=== PATIENT | female | born 1990 | race Caucasian/White ===

== ENCOUNTER 2020-06-15 09:50 | Emergency (ER) | payer SELFPAY ==
--- NOTE | 2020-06-15 10:56 | EDPHYS ---
Physician Documentation [facility] Name: Laya Melendrez Age: 29 yrs Sex: Female : 1990 Arrival Date: 06/15/2020 Time: 09:54 Bed 23 Private MD: ED Physician Alexx Leigh HPI: 06/15 10:42 This 29 yrs old Female presents to ER via Ambulatory with complaints of Runny jr8 Nose, Headache, Cough. 10:42 Pt presents for runny nose, cough, and a headache x 3 days. Pt's children are having jr8 similar symptoms. Pt states that she feels drainage and congestion in her chest. No medications have been tried at home. No N/V/D, fever, SOB, or any other symptoms at this time.. 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 - Social history:: Smoking status: Patient reports the use of cigarette tobacco products, smokes one-half pack cigarettes per day. ROS: 10:53 Eyes: Negative for injury, pain, redness, and discharge, Neck: Negative for injury, jr8 pain, and swelling, Cardiovascular: Negative for chest pain, palpitations, and edema, Abdomen/GI: Negative for abdominal pain, nausea, vomiting, diarrhea, and constipation, Back: Negative for injury and pain, MS/Extremity: Negative for injury and deformity, Skin: Negative for injury, rash, and discoloration. 10:53 Constitutional: Positive for body aches, chills, fever. 10:53 ENT: Positive for rhinorrhea, sinus congestion. 10:53 Respiratory: Positive for cough, Negative for dyspnea on exertion, shortness of breath. 10:53 Neuro: Positive for headache. Exam: 10:53 Eyes: Pupils equal round and reactive to light, extra-ocular motions intact. Lids and jr8 lashes normal. Conjunctiva and sclera are non-icteric and not injected. Cornea within normal limits. Periorbital areas with no swelling, redness, or edema. ENT: Nares patent. No nasal discharge, no septal abnormalities noted. Tympanic membranes are normal and external auditory canals are clear. Oropharynx with no redness, swelling, or masses, exudates, or evidence of obstruction, uvula midline. Mucous membranes moist. Neck: Trachea midline, no thyromegaly or masses palpated. Anterior cervical lymphadenopathy present. Supple, full range of motion without nuchal rigidity, or vertebral point tenderness. No Meningismus. Cardiovascular: Regular rate and rhythm with a normal S1 and S2. No gallops, murmurs, or rubs. Normal PMI, no JVD. No pulse deficits. Respiratory: Lungs have equal breath sounds bilaterally, clear to auscultation and percussion. No rales, rhonchi or wheezes noted. No increased work of breathing, no retractions or nasal flaring. Abdomen/GI: Soft, non-tender, with normal bowel sounds. No distension or tympany. No guarding or rebound. No evidence of tenderness throughout. Back: No spinal tenderness. No costovertebral tenderness. Full range of motion. Skin: Warm, dry with normal turgor. Normal color with no rashes, no lesions, and no evidence of cellulitis. MS/ Extremity: Pulses equal, no cyanosis. Neurovascular intact. Full, normal range of motion. Neuro: Awake and alert, GCS 15, oriented to person, place, time, and situation. Cranial nerves II-XII grossly intact. Motor strength 5/5 in all extremities. Sensory grossly intact. Cerebellar exam normal. Normal gait. Vital Signs: 09:59 BP 105 / 69; Pulse 92; Resp 17 S; Temp 97.8(TE); Pulse Ox 99% on R/A; Weight 72.57 kg; ca1 Height 5 ft. 2 in. (157.48 cm); 09:59 Body Mass Index 29.26 (72.57 kg, 157.48 cm) ca1 MDM: 10:10 Patient medically screened. jr8 10:53 Data reviewed: vital signs, nurses notes, and as a result, I will discharge patient. jr8 Data interpreted: Pulse oximetry: on room air is 99 %. Interpretation: normal. Counseling: I had a detailed discussion with the patient and/or guardian regarding: the historical points, exam findings, and any diagnostic results supporting the discharge/admit diagnosis, the need for outpatient follow up, a family practitioner, to return to the emergency department if symptoms worsen or persist or if there are any questions or concerns that arise at home. Administered Medications: No medications were administered Disposition: 11:40 Co-signature as Attending Physician, Alexx Leigh MD. rn Disposition: 06/15/20 10:55 Discharged to Home. Impression: Acute upper respiratory infection, unspecified. - Condition is Stable. - Discharge Instructions: Upper Respiratory Infection, Adult. - Prescriptions for Prednisone 20 mg Oral Tablet - take 1 tablet by ORAL route once daily for 5 days; 5 tablet. - Work release form, Medication Reconciliation Form, Thank You Letter, Antibiotic Education, Prescription Opioid Use form. - Follow up: Private Physician; When: 2 - 3 days; Reason: Recheck today's complaints, Continuance of care, Re-evaluation by your physician. - Problem is new. - Symptoms have improved. Signatures: Zelda Ferguson RN RN Alexx Ybarra MD MD rn Roszak, Josh, PA PA jr8 Kobe, LETITIA Caldwell RN ca1 Corrections: (The following items were deleted from the chart) 11:31 10:55 06/15/2020 10:55 Discharged to Home. Impression: Acute upper respiratory iw infection, unspecified. Condition is Stable. Forms are Medication Reconciliation Form, Thank You Letter, Antibiotic Education, Prescription Opioid Use. Follow up: Private Physician; When: 2 - 3 days; Reason: Recheck today's complaints, Continuance of care, Re-evaluation by your physician. Problem is new. Symptoms have improved. jr8
--- NOTE | 2020-06-15 10:56 | ER ---
Nurse's Notes [facility] Name: Laya Melendrez Age: 29 yrs Sex: Female : 1990 Arrival Date: 06/15/2020 Time: 09:54 Bed 23 Private MD: Diagnosis: Acute upper respiratory infection, unspecified Presentation: 06/15 09:57 Chief complaint: Patient states: Runny nose, fever, body aches, sore throat x 2 days. ca1 Coronavirus screen: congestion, cough unrelated to allergies, fever, runny nose, sore throat, body aches. Ebola Screen: Patient negative for fever greater than or equal to 101.5 degrees Fahrenheit, and additional compatible Ebola Virus Disease symptoms Patient denies exposure to infectious person. Patient denies travel to an Ebola-affected area in the 21 days before illness onset. No symptoms or risks identified at this time. Initial Sepsis Screen: Does the patient meet any 2 criteria? No. Patient's initial sepsis screen is negative. Does the patient have a suspected source of infection? No. Patient's initial sepsis screen is negative. Risk Assessment: Do you want to hurt yourself or someone else? Patient reports no desire to harm self or others. Onset of symptoms was June 15, 2020. 09:57 Method Of Arrival: Ambulatory ca1 09:57 Acuity: BRAD 4 ca1 Triage Assessment: 11:00 Headache History: The patient has had previous headaches. General: Appears in no iw apparent distress. 11:00 General: Appears Behavior is calm, cooperative. Pain: Also complains of no other iw associated symptoms. Pain: Pain currently is 0 out of 10 on a pain scale. Pain began 2-3 days ago. 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 - Social history:: Smoking status: Patient reports the use of cigarette tobacco products, smokes one-half pack cigarettes per day. Screenin:30 Abuse screen: Denies threats or abuse. Denies injuries from another. Nutritional iw screening: No deficits noted. Tuberculosis screening: No symptoms or risk factors identified. Fall Risk None identified. Assessment: 11:00 General: Appears in no apparent distress. comfortable. Pain: Denies pain. Neuro: Level iw of Consciousness is awake, alert, obeys commands. Cardiovascular: Patient's skin is warm and dry. Respiratory: Respiratory effort is even, unlabored, Respiratory pattern is regular, symmetrical. GI: No signs and/or symptoms were reported involving the gastrointestinal system. Derm: Skin is intact, is healthy with good turgor. Musculoskeletal: Range of motion: intact in all extremities. Vital Signs: 09:59 BP 105 / 69; Pulse 92; Resp 17 S; Temp 97.8(TE); Pulse Ox 99% on R/A; Weight 72.57 kg; ca1 Height 5 ft. 2 in. (157.48 cm); 09:59 Body Mass Index 29.26 (72.57 kg, 157.48 cm) ca1 ED Course: 09:54 Patient arrived in ED. as 09:58 Triage completed. ca1 09:59 Arm band placed on right wrist. ca1 10:10 Matthew Dumont PA is PHCP. jr8 10:10 Alexx Leigh MD is Attending Physician. jr8 11:00 Patient has correct armband on for positive identification. iw 11:27 Zelda Ferguson, RN is Primary Nurse. iw 11:30 No provider procedures requiring assistance completed. Patient did not have IV access iw during this emergency room visit. Administered Medications: No medications were administered Outcome: 10:55 Discharge ordered by . jr8 11:30 Discharged to home ambulatory. iw 11:30 Condition: good 11:30 Discharge instructions given to patient, Instructed on discharge instructions, follow up and referral plans. medication usage, Demonstrated understanding of instructions, follow-up care, medications, Prescriptions given X 1. 11:31 Patient left the ED. iw Signatures: Lauren Russ as Zelda Ferguson, RN RN iw Matthew Dumont PA PA 8 Paulette Bullock RN RN ca1
[2020-06-15 11:36] VITALS: BP 105/69; TEMP 97.8; O2SAT 99
== END 2020-06-15 11:31 | disposition home or self-care (01) ==
LOC: ER 09:50
DX: J06.9 Acute upper respiratory infection, unspecified (principal); F17.210 Nicotine dependence, cigarettes, uncomplicated
CPT/HCPCS: 99282